=== PATIENT | male | born 1940 | race Caucasian/White ===

== ENCOUNTER 2023-07-10 12:08 | Outpatient (CLI) | payer MEDICARE, SELFPAY ==
--- NOTE | ~2023-07-10 | US_ITS ---
EXAMINATION: US venous doppler LE RT DATE: 07/10/2023 12:45 INDICATION: Right lower limb edema. TECHNIQUE: Grayscale ultrasound images without and with compression and Doppler ultrasound images of the right lower extremity veins were obtained. COMPARISON: None. FINDINGS: There is peripheral hyperechoic material in right common femoral vein, consistent with old thrombus. The visualized portions of right profunda (deep) femoral vein, femoral vein, popliteal vein, peroneal veins, posterior tibial veins, and greater saphenous vein outflow are patent. IMPRESSION: 1. No acute deep venous thrombosis. 2. 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 Reviewed, dictated and finalized at location A.
== END 2023-07-10 12:09 | disposition home or self-care (01) ==
LOC: CHSIMG 12:18
PROVIDERS: PCP Family Medicine; Visit Provider Family Medicine
DX: R60.0 Localized edema (principal); I82.411 Acute embolism and thrombosis of right femoral vein
CPT/HCPCS: 93971